=== PATIENT | male | born 1985 | race Caucasian/White ===

== ENCOUNTER 2018-07-27 01:48 | Emergency (ER) | payer OTHER ==
[2018-07-27 02:16] LABS: PLATELET COUNT 291 10^3/uL (150-400)
--- NOTE | 2018-07-27 04:55 | EDPHY ---
H & P Stated Complaint: Concerned for liver damage, Alcohol abuse hx, "bruising", itchy Time Seen by Provider: 07/27/18 01:57 HPI/ROS: H HPI The patient presents with concern for liver failure. He is a daily drinker for approximately the last 10 years true drinking 8-9 alcoholic drinks a day. He was doing some reading over the last few days and is concerned that he is in liver failure because he has easy bruising, itching of his skin, and occasional leg pain. He called his primary care doctor and was planning to get labs later today, however because of his history of OCD and anxiety became worried overnight and came into the emergency department to have expedited laboratory testing.. REVIEW OF SYSTEMS 10 systems were reviewed and negative with the exception of the elements mentioned in the history of present illness. PMHx: OCD, anxiety, primary care doctor is Dr. Josey Westfall Hx: Works at a [employer], drinks 8-9 alcoholic drinks today PHYSICAL General Appearance: Alert, no distress Eyes: Pupils equal and round no pallor or injection ENT, Mouth: Mucous membranes moist Respiratory: Breathing comfortably Neurological: A&O, moves all extremities Skin: Warm and dry, no rashes Extremities: symmetrical, full range of motion Psychiatric: Patient is oriented X 3, there is no agitation Source: Patient Exam Limitations: No limitations - Personal History Current Tetanus Diphtheria and Acellular Pertussis (TDAP): No - Medical/Surgical History Hx Asthma: No Hx Chronic Respiratory Disease: No Hx Diabetes: No Hx Cardiac Disease: No Hx Renal Disease: No Hx Cirrhosis: No Hx Alcoholism: No Hx HIV/AIDS: No Hx Splenectomy or Spleen Trauma: No Other PMH: Alcohol Abuse, OCD - Social History Smoking Status: Never smoked Constitutional: Initial Vital Signs Temperature (C) 36.7 C 07/27/18 01:50 Heart Rate 75 07/27/18 01:50 Respiratory Rate 17 07/27/18 01:50 Blood Pressure 142/92 H 07/27/18 01:50 O2 Sat (%) 96 07/27/18 01:50 O2 Delivery Mode Room Air Allergies/Adverse Reactions: No Known Allergies Allergy (Verified 07/27/18 01:49) Home Medications: Medication Instructions Recorded LORazepam [Ativan 0.5 mg (RX)] 0.5 mg PO 01/24/12 Paroxetine HCl [Paxil] 50 mg PO 01/24/12 Fluvoxamine Maleate ER 07/27/18 Medical Decision Making Differential Diagnosis: 33-year-old male, with alcohol abuse, presents with concerned that he is in acute liver failure because of itching of his skin and some easy bruising. Here , he is well-appearing. I have performed basic testing an AST is slightly elevated, otherwise labs are unremarkable. I suspect he is having mild alcoholic hepatitis related to his severe drinking. He does seem motivated to quit actually but is unsure how to go about this and is concerned about experiencing withdrawals. I will put a note in for our keycase assembler to contact him about possible medical detox programs. - Data Points Laboratory Results: Laboratory Results 07/27/18 02:10 07/27/18 02:10 07/27/18 07/27/18 02:10 02:10 WBC 6.98 10^3/uL 10^3/uL (3.80-9.50) RBC 4.99 10^6/uL 10^6/uL (4.40-6.38) Hgb 15.8 g/dL g/dL (13.7-17.5) Hct 45.3 % % (40.0-51.0) MCV 90.8 fL fL (81.5-99.8) MCH 31.7 pg pg (27.9-34.1) MCHC 34.9 g/dL g/dL (32.4-36.7) RDW 11.8 % % (11.5-15.2) Plt Count 291 10^3/uL 10^3/uL (150-400) MPV 9.8 fL fL (8.7-11.7) Neut % (Auto) 58.3 % % (39.3-74.2) Lymph % (Auto) 29.8 % % (15.0-45.0) [place] % (Auto) 9.9 % % (4.5-13.0) Eos % (Auto) 1.3 % % (0.6-7.6) Baso % (Auto) 0.6 % % (0.3-1.7) Nucleat RBC Rel Count 0.0 % % (0.0-0.2) Absolute Neuts (auto) 4.07 10^3/uL 10^3/uL (1.70-6.50) Absolute Lymphs (auto) 2.08 10^3/uL 10^3/uL (1.00-3.00) Absolute Monos (auto) 0.69 10^3/uL 10^3/uL (0.30-0.80) Absolute Eos (auto) 0.09 10^3/uL 10^3/uL (0.03-0.40) Absolute Basos (auto) 0.04 10^3/uL 10^3/uL (0.02-0.10) Absolute Nucleated RBC 0.00 10^3/uL 10^3/uL (0-0.01) Immature Gran % 0.1 % % (0.0-1.1) Immature Gran # 0.01 10^3/uL 10^3/uL (0.00-0.10) Sodium 137 mEq/L mEq/L (135-145) Potassium 4.4 mEq/L mEq/L (3.5-5.2) Chloride 101 mEq/L mEq/L (97-110) Carbon Dioxide 23 mEq/l mEq/l (22-31) Anion Gap 13 mEq/L mEq/L (6-14) BUN 13 mg/dL mg/dL (7-23) Creatinine 0.7 mg/dL mg/dL (0.7-1.3) Estimated GFR > 60 Glucose 89 mg/dL mg/dL (70-100) Calcium 9.9 mg/dL mg/dL (8.5-10.4) Total Bilirubin 0.4 mg/dL mg/dL (0.1-1.4) AST 99 IU/L H IU/L (17-59) ALT 64 IU/L IU/L (21-72) Alkaline Phosphatase 86 IU/L IU/L (38-126) Total Protein 7.6 g/dL g/dL (6.3-8.2) Albumin 4.6 g/dL g/dL (3.5-5.0) Departure - Departure Disposition: Home, Routine, Self-Care Clinical Impression: Alcohol abuse, Transaminitis Condition: Good Instructions: At-Risk Alcohol Use (ED) Additional Instructions: Your testing today showed that your liver is inflamed from drinking alcohol. This is reversible if you can stop drinking. I have put in a note for keycase assembler to call you about help with detox. You should look into the [facility] group for help finding a support network. Referrals: Franco Dowling MD [Primary Care Provider] - As per Instructions
[2018-07-27 05:01] VITALS: BP 135/86
--- NOTE | 2018-07-28 16:38 | ASMTCMCOM ---
CM Note CM Note Notes: Case Management follow up note. Patient was seen in the ER on 07/27/18 (see ER report) and was interested in resources for detox and or ETOH recovery. This CM contatced patient today, 07/28/18. Patient was very pleasant and appreciative for call. I provided patient with contact information for local resources including [facility] in [place], [facility] in [place], and [facility] couch. I encouraged patient to follow up with his insurance provider as well to determine in-network providers. CM available prn for further needs Date Signed: 07/28/2018 04:37 PM Electronically Signed By:Talita Parada RN
== END 2018-07-27 05:01 | disposition home or self-care (01) ==
DX: F10.10 Alcohol abuse, uncomplicated (principal); R74.0 Nonspecific elevation of levels of transaminase and lactic acid dehydrogenase [LDH]; F41.9 Anxiety disorder, unspecified